=== PATIENT | female | born 1970 | race Two or more races ===

== ENCOUNTER 2024-07-11 14:11 | Emergency (ER) | payer SELFPAY ==
[~2024-07-11] VITALS: Ht 165.1 cm; Wt 88.5 kg
--- NOTE | 2024-07-11 15:46 | ED.PDOC ---
[facility] HEL[facility] HPI Comments 53-year-old female patient with past medical history of uterine fibroids, and heavy menstrual bleeding presented in the ED with chief complaint of dizziness associated with nasal congestion and ear pressure for last one day. She mentions complains that for last 2 hours "she has to force herself to take breaths" but does not feel shortness of breath, chest pain, vertigo, headache, nausea, vomiting. She has been having heavy menstrual bleeding continuously for last 30 days but in last 10 days she describes it at severe. Patient has been changing pads every hour for last few hours. As per patient, her last hemoglobin was 6.8 earlier this year when she started taking iron tablets, but she never got her labs repeat. She denied any blood transfusion in the past. Past medical history Uterine fibroids, heavy menstrual bleeding Past surgical history No surgery Family history Nonsignificant Social history Denied smoking, alcohol, marijuana or any other drug intake Medication history Iron tablets Review of system As described in the HPI Examination General Appearance: Alert, Oriented X3, Cooperative, No acute distress Respiratory: Clear to auscultation, Normal air movement Cardiovascular: Regular rate, Normal S1, Normal S2 Abdominal: Normal bowel sounds Extremities: No cyanosis, No edema, Normal pulses, No tenderness/swelling Skin: No rashes, No breakdown Neuro: Normal speech and tone Attestation note: Dr. Smith: I was the supervising attending for this ED encounter. Please see the resident's notes. I was available for questions and consultations. Differential diagnosis: Differential diagnosis includes but not limited to DU B, menorrhea, metromenorrhagia, neoplasm, coagulopathy, , trauma, miscarriage, placenta previa, placental abruption, MDM: Patient presented with the above HPI.--vaginal bleed----workup was initiated. patient was found with the above mentioned diagnosis. Patient was given: Normal saline fluid bolus and repeat H and H was obtained. Patient remains hemodynamically stable Patient ED course and VS have been stabilized. Patient has been reassessed in the ED and remained in a stable condition. Pertinent incidental findings were discussed with the patient and/or family. Patient/family voices understanding and is agreeable with plan. Patient has been observed in the ED adequate length of time to insure improvement/stability. patient was discharged home in a stable condition All the reports of any imaging studies that were ordered by myself were reviewed by myself. Chief Complaint: Vaginal Bleed Time Seen by MD: 14:23 Allergies: Coded Allergies: NO KNOWN ALLERGIES (Unverified , 07/11/24) Information Source: Patient Physical Exam General Appearance: Other (Mentioned in the note) HEENT: Other (Mentioned in the note) Neck: Other (Mentioned in the note) Respiratory: Other (Mentioned in the note) Cardiovascular: Other (Mentioned in the note) Breast Exam: Deferred Gastrointestinal: Other (Mentioned in the note) Genitalia: Deferred Pelvic: Deferred Rectal: Deferred Extremities: Other (Mentioned in the note) Neurologic: Other (Mentioned in the note) Cerebellar Function: Other (Mentioned in the note) Reflexes: Other (Mentioned in the note) Skin: Other (Mentioned in the note) Lymphatic: Other (Mentioned in the note) Was a procedure done? Was a procedure done?: No X-Ray, Labs, Meds, VS Vital Signs Date Time Temp Pulse Resp B/P (MAP) Pulse Ox O2 Delivery O2 Flow Rate FiO2 07/11/24 22:00 98.0 95 18 135/72 (93) 100 98.0 07/11/24 16:00 99 16 98 Room Air 07/11/24 16:00 99 16 130/73 (92) 98 07/11/24 15:05 97.8 102 16 147/58 (87) 98 Lab Test 07/11/24 19:19 07/11/24 16:00 Range/Units Hemoglobin 11.3 L 11.6 L 12.2-16.2 g/dL Hematocrit 33.8 L 34.4 L 36.0-46.0 % White Blood Count 6.2 4.4-10.8 10^3/uL Red Blood Count 3.86 L 4.0-5.20 10^6/uL Mean Corpuscular Volume 89.2 80.0-100.0 fL Mean Corpuscular Hemoglobin 30.0 28.0-32.0 pg Mean Corpuscular Hemoglobin Concent 33.7 32.0-36.0 g/dL Red Cell Distribution Width 15.4 H 11.8-14.3 % Platelet Count 298 140-450 10^3/uL Mean Platelet Volume 7.7 6.9-10.8 fL Neutrophils (%) (Auto) 64.1 37.0-80.0 % Lymphocytes (%) (Auto) 21.0 10.0-50.0 % Monocytes (%) (Auto) 8.6 0.0-12.0 % Eosinophils (%) (Auto) 5.6 0.0-7.0 % Basophils (%) (Auto) 0.7 0.0-2.0 % Neutrophils # (Auto) 4.0 1.6-8.6 10 ^3/uL Lymphocytes # (Auto) 1.3 0.4-5.4 10 ^3/uL Monocytes # (Auto) 0.5 0-1.3 10 ^3/uL Eosinophils # (Auto) 0.3 0-0.8 10 ^3/uL Basophils # (Auto) 0 0-0.2 10 ^3/uL Nucleated Red Blood Cells 0.1 % Sodium Level 139 136-145 mmol/L Potassium Level 3.4 L 3.5-5.1 mmol/L Chloride Level 106 98-107 mmol/L Carbon Dioxide Level 26 20-31 mmol/L Anion Gap 7 5-15 Blood Urea Nitrogen 14 9-23 mg/dL Creatinine 0.93 0.550-1.02 mg/dL Glomerular Filtration Rate Calc 74 >90 mL/min BUN/Creatinine Ratio 15.1 10.0-20.0 Serum Glucose 142 H 74-106 mg/dL Calcium Level 9.5 8.7-10.4 mg/dL Magnesium Level 2.3 1.6-2.6 mg/dL Total Bilirubin 0.3 0.2-1.0 mg/dL Aspartate Amino Transferase (AST) 43 H 13-40 U/L Alanine Aminotransferase (ALT) 58 H 7-40 U/L Alkaline Phosphatase 89 46-116 U/L Total Protein 7.1 5.7-8.2 g/dL Albumin 4.4 3.2-4.8 g/dL Beta HCG, Quantitative 0.1 L 1.5-4.2 mIU/mL [place] [id number] Ph: [phone] DIAGNOSTIC IMAGING Diagnostic Imaging Report : [id number] Signed PATIENT: FERNY EVANS ACCT: [id number] UNIT: [id number] : 1970 LOC: ER ROOM / BED: / AGE / SEX: 53 / F ADM STATUS: REG ER SERVICE [id number] ORDERING PHYSICIAN: TIMOTHY CHIN RESIDENT PROCEDURE(s): PELUS - PELVIC REASON: VAG BLEED X 1MONTH ORDER NUMBER(s): [id number], ACCESSION NUMBER(s): [id number] EXAM: US Pelvis Transabdominal and Transvaginal, Complete CLINICAL INDICATION: VAG BLEED X 1MONTH TECHNIQUE: Real-time complete transabdominal and transvaginal pelvic ultrasound with image documentation. Transvaginal imaging was used for better evaluation of the endometrium and adnexa. COMPARISON: None FINDINGS: UTERUS/CERVIX: Hypodense lesion of the right aspect of the uterus in the myom etrium measuring up to 2.0 cm. Endometrium 1.4 cm thick. The uterus measures 10.6 x 5.8 x 6.8 cm. RIGHT OVARY: 3.3 x 4.2 x 2.4 cm right simple ovarian cyst. Normal blood flow. The right ovary measures 3.7 x 5.0 x 2.8 cm. LEFT OVARY: Unremarkable. Normal blood flow. The left ovary measures 2.9 x 2.2 x 1.4 cm. FREE FLUID: No free fluid. BLADDER: Unremarkable as visualized. Wall is normal thickness for degree of distention. OTHER FINDINGS: . . IMPRESSION: Probable uterine fibroid. HS:Y ATED BY: CHAVA MERCADO MD DICTATED DATE/TIME: 07/11/241736 SIGNED BY: CHAVA MERCADO MD SIGNED DATE/TIME: 07/11/241736 CC: [place] [id number] Ph: [phone] DIAGNOSTIC IMAGING Diagnostic Imaging Report : [id number] Signed PATIENT: FERNY EVANS ACCT: [id number] UNIT: [id number] : 1970 LOC: ER ROOM / BED: / AGE / SEX: 53 / F ADM STATUS: REG ER SERVICE 1518 ORDERING PHYSICIAN: MARY SMITH DO PROCEDURE(s): CXRP - CHEST PORTABLE REASON: sob, VB ORDER NUMBER(s): [id number], ACCESSION NUMBER(s): [id number] EXAM: XY CHEST PORTABLE TECHNIQUE: Single frontal chest radiograph CLINICAL HISTORY: sob, VB COMPARISON: None Findings/Impression: Frontal chest radiograph demonstrates no acute osseous or superficial soft tissue abnormalities. The trachea is midline. The cardiac silhouette and mediastinum are within normal limits. No pneumothorax, pleural effusions, or consolidations. ATED BY: NELIA EDWARDS DO DICTATED DATE/TIME: 07/11/24 1549 SIGNED BY: NELIA EDWARDS DO SIGNED DATE/TIME: 07/11/24 1549 CC: Time of 1ST Reevaluation: 00:00 Reevaluation 1ST: Improved Patient Education/Counseling: Diagnosis, Treatment Family Education/Counseling: No Family Present Departure 1 Departure Time of Disposition: 20:11 Impression: Primary Impression: DUB (dysfunctional uterine bleeding) Additional Impressions: Uterine fibroid Ovarian cyst Disposition: HOME / SELF CARE / HOMELESS Condition: Stable Additional Instructions: Additional discharge instructions: You MUST follow-up with your primary care/family doctor in 1 to 2 days. If you are unable to see your primary care/family doctor, please return to our emergency room for re-assessment and re-evaluation in 1 to 2 days. Return to the emergency room here in our facility or to the nearest ER [facility] if your symptoms change or worsen. CONSULTATIONS: you MUST Follow-up for consultation as soon as possible with: Dr. LUISITO Cr doctor in 1-2 days. Please call for appointment. You MUST call the consultants office yourself to make an appointment. You may need to arrange that through your insurance and/or your primary/family doctor. If you are unable to see the [employer] consultant in 1 to 2 days, you must return to our emergency room (or any other ER of your choice) for re-assessment and re- evaluation. Adequate fluid hydration. Take daily iron supplements. Pelvic rest. Repeat CBC in 48-72 hours. Below is a copy of your radiological report for follow up: [place] [id number] Ph: [phone] DIAGNOSTIC IMAGING Diagnostic Imaging Report : [id number] Signed PATIENT: FERNY EVANS ACCT: [id number] UNIT: [id number] : 1970 LOC: ER ROOM / BED: / AGE / SEX: 53 / F ADM STATUS: REG ER SERVICE 1637 ORDERING PHYSICIAN: TIMOTHY CHIN RESIDENT PROCEDURE(s): PELUS - PELVIC REASON: VAG BLEED X 1MONTH ORDER NUMBER(s): [id number], ACCESSION NUMBER(s): [id number] EXAM: US Pelvis Transabdominal and Transvaginal, Complete CLINICAL INDICATION: VAG BLEED X 1MONTH TECHNIQUE: Real-time complete transabdominal and transvaginal pelvic ultrasound with image documentation. Transvaginal imaging was used for better evaluation of the endometrium and adnexa. COMPARISON: None FINDINGS: UTERUS/CERVIX: Hypodense lesion of the right aspect of the uterus in the myometrium measuring up to 2.0 cm. Endometrium 1.4 cm thick. The uterus measures 10.6 x 5.8 x 6.8 cm. RIGHT OVARY: 3.3 x 4.2 x 2.4 cm right simple ovarian cyst. Normal blood flow. The right ovary measures 3.7 x 5.0 x 2.8 cm. LEFT OVARY: Unremarkable. Normal blood flow. The left ovary measures 2.9 x 2.2 x 1.4 cm. FREE FLUID: No free fluid. BLADDER: Unremarkable as visualized. Wall is normal thickness for degree of distention. OTHER FINDINGS: . . IMPRESSION: Probable uterine fibroid. HS:Y ATED BY: CHAVA MERCADO MD DICTATED DATE/TIME: 07/11/241736 SIGNED BY: CHAVA MERCADO MD SIGNED DATE/TIME: 07/11/241736 CC: Discharged With: Self Critical Care Note Critical Care Time?: No Stability Stability form required: No Heart Score Heart Score: Heart Score Response (Comments) Value History N/A 0 EKG N/A 0 Age N/A 0 Risk Factors N/A 0 Troponin N/A 0 Total 0 TIMOTHY CHIN RESIDENT Jul 11, 2024 15:46 MARY SMITH DO Jul 11, 2024 20:13
--- NOTE | 2024-07-11 15:52 | DVH ---
EXAM: XY CHEST PORTABLE TECHNIQUE: Single frontal chest radiograph CLINICAL HISTORY: sob, VB COMPARISON: None Findings/Impression: Frontal chest radiograph demonstrates no acute osseous or superficial soft tissue abnormalities. The trachea is midline. The cardiac silhouette and mediastinum are within normal limits. No pneumothorax, pleural effusions, or consolidations.
[2024-07-11] MEDS: SODIUM CHLORIDE 0.9% 1,000 ML IV ONE (16:16)
[2024-07-11 16:17] LABS: Basophils # (auto) 0 10 ^3/uL (0-0.2); Basophils % (auto) 0.7 % (0.0-2.0); Eosinophils # (auto) 0.3 10 ^3/uL (0-0.8); Eosinophils % (auto) 5.6 % (0.0-7.0); Hematocrit 34.4 % (36.0-46.0); Hemoglobin 11.6 g/dL (12.2-16.2); Lymphocytes # (auto) 1.3 10 ^3/uL (0.4-5.4); Mean Corpuscular Hgb Conc. 33.7 g/dL (32.0-36.0); Mean Corpuscular Volume 89.2 fL (80.0-100.0); Monocytes # (auto) 0.5 10 ^3/uL (0-1.3); Monocytes % (auto) 8.6 % (0.0-12.0); Neutrophils % (auto) 64.1 % (37.0-80.0); Nucleated Red Blood Cells % 0.1 %; Platelet Count (auto) 298 10^3/uL (140-450); Red Blood Cells 3.86 10^6/uL (4.0-5.20); Red Cell Distribution Width 15.4 % (11.8-14.3); White Blood Cell 6.2 10^3/uL (4.4-10.8)
[2024-07-11 16:36] LABS: Alanine Aminotransferase 58 U/L (7-40); Albumin 4.4 g/dL (3.2-4.8); Alkaline Phosphatase 89 U/L (46-116); Anion Gap 7 (5-15); Aspartate Aminotransferase 43 U/L (13-40); BUN/Creatinine Ratio 15.1 (10.0-20.0); Bilirubin, Total 0.3 mg/dL (0.2-1.0); Blood Urea Nitrogen 14 mg/dL (9-23); Calcium 9.5 mg/dL (8.7-10.4); Carbon Dioxide 26 mmol/L (20-31); Chloride 106 mmol/L (98-107); Glucose 142 mg/dL (74-106); Magnesium 2.3 mg/dL (1.6-2.6); Potassium 3.4 mmol/L (3.5-5.1); Sodium 139 mmol/L (136-145); Total Protein 7.1 g/dL (5.7-8.2)
--- NOTE | 2024-07-11 17:40 | DVH ---
EXAM: US Pelvis Transabdominal and Transvaginal, Complete CLINICAL INDICATION: VAG BLEED X 1MONTH TECHNIQUE: Real-time complete transabdominal and transvaginal pelvic ultrasound with image documenta tion. Transvaginal imaging was used for better evaluation of the endometrium and adnexa. COMPARISON: None FINDINGS: UTERUS/CERVIX: Hypodense lesion of the right aspect of the uterus in the myometrium measuring up to 2.0 cm. Endometrium 1.4 cm thick. The uterus measures 10.6 x 5.8 x 6.8 cm. RIGHT OVARY: 3.3 x 4.2 x 2.4 cm right simple ovarian cyst. Normal blood flow. The right ovary hi ures 3.7 x 5.0 x 2.8 cm. LEFT OVARY: Unremarkable. Normal blood flow. The left ovary measures 2.9 x 2.2 x 1.4 cm. FREE FLUID: No free fluid. BLADDER: Unremarkable as visualized. Wall is normal thickness for degree of distention. OTHER FINDINGS: . . IMPRESSION: Probable uterine fibroid. HS:Y
[2024-07-11 20:05] LABS: Hematocrit 33.8 % (36.0-46.0); Hemoglobin 11.3 g/dL (12.2-16.2)
[2024-07-11 22:00] VITALS: BP 135/72; PULSE 95; RESP 18; TEMP 98; O2SAT 100
== END 2024-07-11 22:11 | disposition home or self-care (01) ==
LOC: ER 14:11
DX: N93.8 Other specified abnormal uterine and vaginal bleeding (principal); R10.2 Pelvic and perineal pain; D25.9 Leiomyoma of uterus, unspecified; N83.209 Unspecified ovarian cyst, unspecified side; Z79.899 Other long term (current) drug therapy
CPT/HCPCS: 36415; 71045; 76830; 76856; 80053; 83735; 84702; 85014; 85018; 85025; 86850; 86900; 86901; 96360; 99284; J7030